=== PATIENT | female | born 1975 | race Caucasian/White ===

== ENCOUNTER 2016-08-21 09:40 | Emergency (ER) | payer SELFPAY ==
[2016-08-21 10:01] VITALS: BP 105/66
--- NOTE | 2016-08-21 10:34 | UC ---
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 SINCE THEN HAS HAD LEFT SIDED MID/UPPER BACK AND SHOULDER PAIN. NO NUMBNESS OR TINGLING. HAS FULL ROM. 200 MG IBUPROFEN HELPS A BIT. - History of Current Complaint Chief Complaint: UCBackPain Stated Complaint: NECK AND BACK INJURY Time Seen by Provider: 08/21/16 09:43 Hx Obtained From: Patient Hx Last Menstrual Period: 08/06/16 Onset/Duration: Sudden Onset, Lasting Days, Still Present Timing: Constant Severity Initially: Moderate Severity Currently: Moderate Pain Intensity: 6 Pain Scale Used: 0-10 Numeric Back Pain: Is Discrete @ - LEFT UPPER BACK AND SHOULDER Character: Sharp Aggravating: Movement Alleviating: Rest Associated Signs And Symptoms: Positive: Negative - Allergies/Home Medications Allergies/Adverse Reactions: Allergies Allergy/AdvReac Type Severity Reaction Status Date / Time WASPS Allergy Severe Hives Uncoded 08/21/16 09:53 bees Allergy Hives Uncoded 08/21/16 09:53 PMH/Surg Hx/FS Hx/Imm Hx Previously Healthy: Yes Endocrine History Of: Denies: Diabetes, Thyroid Disease Cardiovascular History Of: Denies: Cardiac Disorders, Hypertension Respiratory History Of: Denies: COPD, Asthma GI/ History Of: Denies: Ulcer - Surgical History Surgical History: Yes Surgery Procedure, Year, and Place: wisdom teeth at age 29 - Family History Known Family History: Negative: Hypertension - Social History Alcohol Use: Occasionally Substance Use Type: None Smoking Status (MU): Never Smoked Tobacco Review of Systems Constitutional: Negative Skin: Negative Respiratory: Negative Cardiovascular: Negative Gastrointestinal: Negative Musculoskeletal: Myalgia All Other Systems Reviewed And Are Negative: Yes Physical Exam Triage Information Reviewed: Yes Appearance: Well-Appearing, No Pain Distress, Well-Nourished Vital Signs: Initial Vital Signs Temp 99.1 F 08/21/16 09:48 Pulse 80 08/21/16 09:48 Resp 18 08/21/16 09:48 BP 105/66 08/21/16 09:48 Pulse Ox 100 08/21/16 09:48 Vital Signs Reviewed: Yes Eyes: Positive: Conjunctiva Clear ENT: Positive: Hearing grossly normal Neck: Positive: Supple Respiratory: Positive: No respiratory distress, No accessory muscle use Cardiovascular: Positive: Pulses Normal Abdomen Description: Positive: Soft Musculoskeletal: Positive: ROM Intact, No Edema, Other: - MILDLY TTP LEFT TRAPEZIUS Neurological: Positive: Alert Psychological: Positive: Age Appropriate Behavior Skin: Negative: rashes Back Pain Course/Dx - Differential Dx/Diagnosis Provider Diagnoses: LEFT TRAPEZIUS MUSCLE STRAIN/UPPER BACK PAIN Discharge - Discharge Plan Condition: Stable Disposition: HOME Prescriptions: Cyclobenzaprine TAB* [Flexeril TAB*] 10 mg PO BID PRN #30 tab PRN Reason: Pain Ibuprofen TAB* [Motrin TAB* 600 MG] 1 tab PO Q6H PRN #30 tab PRN Reason: Pain Patient Education Materials: Muscle Strain (ED), Back Pain (ED) Forms: *Work Release Referrals: Nicho Gomez MD [Medical Doctor] - If Needed Additional Instructions: BE SURE TO GO THROUGH SLOW RANGE OF MOTION AND STRETCHING EXERCISES DAILY YOU ARE ABLE TO PREVENT STIFFENING UP AND MAKING THE DISCOMFORT WORSE.
== END 2016-08-21 10:33 | disposition home or self-care (01) ==
LOC: UCEAST 09:40
DX: S46.812A Strain of other muscles, fascia and tendons at shoulder and upper arm level, left arm, initial encounter (principal); S29.012A Strain of muscle and tendon of back wall of thorax, initial encounter; X50.0XXA Overexertion from strenuous movement or load, initial encounter; Y93.89 Activity, other specified; Y92.9 Unspecified place or not applicable; Y99.0 Civilian activity done for income or pay
CPT/HCPCS: 99212; G0463

== ENCOUNTER 2016-09-17 08:10 | Emergency (ER) | payer SELFPAY ==
[2016-09-17 08:37] VITALS: BP 108/70
[2016-09-17] MEDS ORDERED: Ibuprofen TAB* 600 MG PO ONE (09:28)
--- NOTE | 2016-09-17 10:10 | RAD ---
INDICATION: Back pain thoracic lumbar region. COMPARISON: There are no prior studies available for comparison. TECHNIQUE: AP and lateral films of the spine were obtained centered at the dorsal lumbar junction. FINDINGS: There is a minimal dorsal lumbar scoliosis convex toward the right at the dorsal lumbar junction and toward the left in the lower lumbar region. No fracture is seen. Disc spaces appear maintained. There is minimal endplate hypertrophic changes in the lower dorsal and upper lumbar spine consistent with mild degenerative disc disease. IMPRESSION: 1. NO EVIDENCE FOR FRACTURE. 2. MILD DEGENERATIVE DISC DISEASE.
--- NOTE | 2016-09-17 10:28 | UC ---
Kaitlynn Guerra Matthew, scribed for Joy Mckeon MD on 09/17/16 at 0901 . Back Pain HPI - HPI Summary HPI Summary: A 40 y/o female presents to with mid right sided back pain since 08/17/16. The pain had improved since onset, but has not completely resolved and remains constant. The pain is rated 3/10 currently and is 6/10 at its worst. The pain is described as aching. The patient states that she lifted with one other person a 275 lb box from the back of a pick-up truck to the floor, while working at [employer]. Initially the pain radiate up her back and the right side of her neck, which has since resolved. Associated symptoms include intermittent numbness of the back. The pain worsens with lifting and bending. She was seen on 08/21/16 at [facility] and prescribed flexeril. She initially took a few days off of work initially, and she has been continuing light work since then. The patient has gotten a massage and seen a chiropractor without relief. She continues to have tension. She states that she does not need a refill of flexeril as she has been taking that mostly at night. - History of Current Complaint Chief Complaint: UCBackPain Stated Complaint: BACK INJURY Hx Obtained From: Patient Hx Last Menstrual Period: 2 WEEKS AGO ?: No Onset/Duration: Sudden Onset, Lasting Weeks - since a month ago, Still Present Timing: Constant, Lasting Weeks Severity Initially: Mild Severity Currently: Mild Pain Intensity: 3 - 6/10 at its worst Pain Scale Used: 0-10 Numeric Back Pain: Is Discrete @ - right sided mid back pain Character: Aching Aggravating: Lifting, Bending Alleviating: Nothing Associated Signs And Symptoms: Positive: Numbness - intermittent in the back Related History: Occupational Injury - Risk Factors AAA Risk Factors: Negative TAD Risk Factors: Negative Cauda Equina Risk Factors: Negative Epidural Abscess Risk Factors: Negative - Allergies/Home Medications Allergies/Adverse Reactions: Allergies Allergy/AdvReac Type Severity Reaction Status Date / Time WASPS Allergy Severe Hives Uncoded 08/21/16 09:53 bees Allergy Hives Uncoded 08/21/16 09:53 PMH/Surg Hx/FS Hx/Imm Hx Previously Healthy: Yes Endocrine History Of: Denies: Diabetes, Thyroid Disease Cardiovascular History Of: Denies: Cardiac Disorders, Hypertension Respiratory History Of: Denies: COPD, Asthma GI/ History Of: Denies: Ulcer - Surgical History Surgical History: Yes Surgery Procedure, Year, and Place: wisdom teeth at age 29 - Family History Known Family History: Negative: Hypertension - Social History Occupation: Employed Full-time - [employer] Alcohol Use: Occasionally Substance Use Type: None Smoking Status (MU): Never Smoked Tobacco Review of Systems Constitutional: Negative Skin: Negative Eyes: Negative ENT: Negative Respiratory: Negative Cardiovascular: Negative Gastrointestinal: Negative Genitourinary: Negative Motor: Negative Neurovascular: Negative Musculoskeletal: Myalgia - back pain Neurological: Numbness - intermittent numbness of the back Psychological: Negative All Other Systems Reviewed And Are Negative: Yes Physical Exam Triage Information Reviewed: Yes Appearance: Well-Appearing, Pain Distress - mild, Thin Vital Signs: Initial Vital Signs Temp 97.6 F 09/17/16 08:33 Pulse 81 09/17/16 08:33 Resp 18 09/17/16 08:33 BP 108/70 09/17/16 08:33 Pulse Ox 100 09/17/16 08:33 Vital Signs Reviewed: Yes Eyes: Positive: Conjunctiva Clear ENT: Positive: Normal ENT inspection Neck: Positive: Supple, Nontender Respiratory: Positive: Chest non-tender, Lungs clear, Normal breath sounds, No respiratory distress Cardiovascular: Positive: RRR, No Murmur, Pulses Normal, Brisk Capillary Refill Musculoskeletal: Positive: Strength Intact, ROM Intact, Other: - Indicates tenderness, pain at right para-spinal T 8-12 level Neurological: Positive: Alert, Muscle Tone Normal Psychological Exam: Normal Skin Exam: Normal Diagnostics - Radiology Thoracolumbar XR Xray Interpretation: No Acute Changes - IMPRESSION: 1. NO EVIDENCE FOR FRACTURE. 2. MILD DEGENERATIVE DISC DISEASE. Radiology Interpretation Completed By: Radiologist Back Pain Course/Dx - Course Course Of Treatment: Urinalysis was WNL except trace urine proteins. Checked I- STOP, which showed no search items. Pt medications reviewed this visit - Differential Dx/Diagnosis Differential Diagnosis/HQI/PQRI: Fracture, Herniated Disc, Osteoporosis, Strain , Sprain Provider Diagnoses: Thoracic Back Strain Discharge - Discharge Plan Condition: Stable Disposition: HOME Prescriptions: Cyclobenzaprine TAB* [Flexeril 10 MG TAB*] 10 mg PO TID PRN #15 tab PRN Reason: Pain Ibuprofen TAB* [Motrin TAB* 600 MG] 600 mg PO Q8H PRN #30 tab PRN Reason: Pain Patient Education Materials: Ibuprofen (By mouth), Cyclobenzaprine (By mouth), Thoracic Back Strain (ED) Forms: *Work Release Referrals: Tierra Ma DO [Primary Care Provider] - Keturah Weiner MD [Medical Doctor] - 3 Days Additional Instructions: You may return here as needed for the workers compensation. RETURN TO URGENT CARE FOR ANY NEW OR WORSENING SYMPTOMS Thank you for helping us improve patient care by filling out the [facility]. The documentation as recorded by the Kaitlynn gaspar Matthew accurately reflects the service I personally performed and the decisions made by , Joy Mckeon MD.
== END 2016-09-17 10:29 | disposition home or self-care (01) ==
LOC: UCEAST 08:10
DX: S29.012A Strain of muscle and tendon of back wall of thorax, initial encounter (principal); X50.9XXA Other and unspecified overexertion or strenuous movements or postures, initial encounter; Y93.89 Activity, other specified; Y92.9 Unspecified place or not applicable; Y99.0 Civilian activity done for income or pay; Z32.02 Encounter for pregnancy test, result negative; Z91.030 Bee allergy status
CPT/HCPCS: 72080; 81003; 84702; 99212; A9270-GY; G0463